=== PATIENT | female | born 1985 | race Caucasian/White ===

== ENCOUNTER → 2016-10-03 | Outpatient (CLI) | payer BC, OTHER ==
[~2016-10-03] MED LIST: ATARAX25 MG PO; CEPHALEXIN500 M1; CIPRO 500MG TA500 MG PO; CLEOCIN HC150 MG/CAP PO; CULTURELLE10 Billion PO; DARVOCET-N-101 UDTAB PO; HYDRALAZINE HCL25 MG PO; LINZESS290CAP PO; LORATADINE10 MG PO; MOTRIN 600600 MG/TAB PO; PAXIL PO; PREDNISONE20 MG PO; PRENATAL1 TA1 PO; PRILOSEC 20MG20 MG PO; PROVENTIL0.09 MG/A1 IH; TYLENOL W/COD1 UDTAB PO; ZANAFLEX; [UNRECOGNIZED DRUG - OTHER] PO
== END ==
LOC: COL.RAD 08:43
DX: R10.9 Unspecified abdominal pain (principal)
CPT/HCPCS: A9541

== ENCOUNTER 2020-11-22 10:24 | Day surgery (SDC) | payer BC ==
[~2020-11-22] VITALS: Ht 165.1 cm; Wt 54.1 kg
[2020-11-22] MEDS ORDERED: LINZESS72 MCG PO (11:24)
[2020-11-22] MEDS ORDERED: ATIVAN 1MG T1 MG/TAB PO (11:25)
[2020-11-22] MEDS ORDERED: BENTYL 20MG20 MG/TAB PO (11:25)
[2020-11-22] MEDS ORDERED: CYMBALTA 30MG30 MG PO (11:26)
[2020-11-22 11:27] VITALS: BP 111/74; PULSE 79; TEMP 98.3
[2020-11-22] MEDS ORDERED: ZANAFLEX2 MG PO (11:27)
[2020-11-22 12:50] VITALS: BP 103/62; PULSE 97
--- NOTE | 2020-11-22 12:50 | NUR ---
Patient returns to room 4 per cart from surgery accompanied by Amara HALE and Vicenta Simons CRNA. Patient arouses to verbal stimuli. IV fluids infusing and site is free of redness. Temp 98.1 and room air sats 98%. Minimal bloody discharge noted on filomena pad with briefs in place. Siderails up x2 and call light in reach. Spouse brought to room. Allowed to rest.
[2020-11-22] MEDS ORDERED: PERCOCET 325 MG1 TA2 PO (12:53)
[2020-11-22] MEDS ORDERED: IBU800 M1 PO (12:53)
[2020-11-22] MEDS ORDERED: METHERGINE0.2 MG/TAB PO (12:53)
[2020-11-22] MEDS ORDERED: MONODOX100 PO (12:54)
[2020-11-22 13:05] VITALS: BP 116/75; PULSE 74
--- NOTE | 2020-11-22 13:05 | NUR ---
More awake and taking ice chips. Tearful and spouse is supportative. Offered to call spiritaul care and denies need for this. Denies pain or nausea. Continues to take few ice chips. Minimal vaginal discharge noted on filomena pad.
[2020-11-22 13:20] VITALS: BP 130/71; PULSE 63
[2020-11-22 13:35] VITALS: BP 131/73; PULSE 61
--- NOTE | 2020-11-22 13:35 | NUR ---
Resting and continues to deny pain or nausea. IV fluids infusing. Spouse remains in the room and is very attentative and supportative.
--- NOTE | 2020-11-22 13:35 | NUR ---
Drinking water and talking with spouse. IV fluids continue to infuse.
[2020-11-22 13:50] VITALS: BP 112/52; PULSE 54
--- NOTE | 2020-11-22 13:50 | NUR ---
Eating muffin and drinking water. Continues to deny pain or nausea. Minimal bloody vaginal discharge. IV fluids infusing.
--- NOTE | 2020-11-22 14:11 | NUR ---
Assisted up to the bathroom and with one person assist. IV all infused and converted to INT. Shahida pad changed and minimal bloody vaginal discharge. Less tearful. Assisted back to room. INT needle discontinued and site is free of redness.
--- NOTE | 2020-11-22 14:20 | NUR ---
Patient dresses self with assist of spouse.
--- NOTE | 2020-11-22 14:35 | NUR ---
Dismissal instructions given and signed. Patient and spouse both verbalize understanding of these.
--- NOTE | 2020-11-22 14:38 | NUR ---
Patient dismissed to home driven by spouse and taken to the front door per wheelchair and assisted into vehicle with instructions in hand.
== END 2020-11-22 15:38 | disposition home or self-care (01) ==
LOC: SDCO 10:24
DX: O02.1 Missed abortion (principal); J45.909 Unspecified asthma, uncomplicated; M79.7 Fibromyalgia; F41.9 Anxiety disorder, unspecified; G43.909 Migraine, unspecified, not intractable, without status migrainosus; K58.9 Irritable bowel syndrome, unspecified; K59.00 Constipation, unspecified; Z79.899 Other long term (current) drug therapy
CPT/HCPCS: J1100; J1885; J2210; J2405; J2704; J3010; J7120

== ENCOUNTER 2021-10-03 21:00 | Outpatient (CLI) | payer BC ==
[~2021-10-03] VITALS: Ht 162.6 cm; Wt 62.3 kg
[~2021-10-03 21:00] MED LIST changes: +ATIVAN 1MG T1 MG/TAB PO; +BENTYL 20MG20 MG/TAB PO; +CYMBALTA 30MG30 MG PO; +IBU800 M1 PO; +LINZESS72 MCG PO; +METHERGINE0.2 MG/TAB PO; +MONODOX100 PO; +PERCOCET 325 MG1 TA2 PO; +ZANAFLEX2 MG PO
--- NOTE | 2021-10-03 21:05 | NUR ---
G5L2 at 24 weeks and 6 days arrives to unit with complaint of contractions every 5 minutes. Pt appears to be very uncomfortable and anxious. Pt states pain is in her lower abdomen and describes it as tightening. Pt reports feeling good movement, denies vaginal bleeding, or LOF. Pt is to be seen with MFM at [facility] for suspected chromosomal abnormalities. Pt oriented to room, call light within reach, bed in low and locked position. Clean gown on. US and toco explained and applied. Vital signs obtained. Admission assessment started. SVE performed at this time due to patient appearing very uncomfortable and states the baby feels low. Closed/thick/high.
[2021-10-03 21:30] VITALS: BP 134/82; PULSE 68; TEMP 97.7
--- NOTE | 2021-10-03 21:55 | NUR ---
18g IV started in left forearm with 1 attempt. Lactated Ringers infusing to gravity. Pt still appears to be uncomfortable at times.
[2021-10-03 22:27] LABS: COLLECTION METHOD CLEAN CATCH
[2021-10-03 22:30] VITALS: BP 118/66; PULSE 64
[2021-10-03 22:46] LABS: AMORPHOUS CRYSTAL Present (NOT PRESENT); MUCOUS Present (NOT PRESENT); PH 8 (5-8); SQUAMOUS EPITHELIAL 0-2 /hpf (0-10); URINE APPEARANCE Cloudy (CLEAR/HAZY); URINE BACTERIA Rare /hpf (NONE SEEN); URINE BILIRUBIN Negative (NEGATIVE); URINE BLOOD Negative (NEGATIVE); URINE COLOR Yellow (YELLOW); URINE GLUCOSE Negative (NEGATIVE); URINE KETONE Negative (NEGATIVE); URINE LEUKOCYTE ESTERASE Negative (NEGATIVE); URINE NITRATE Negative (NEGATIVE); URINE PROTEIN(semi-quant) Negative (NEGATIVE); URINE RBC 0-2 /hpf (0-2); URINE UROBILINOGEN Negative (NEGATIVE)
--- NOTE | 2021-10-03 23:00 | NUR ---
Pt reports feeling better. Rarely feeling the cramping or contractions. Feels comfortable going home at this time.
--- NOTE | 2021-10-03 23:30 | NUR ---
IV out. Discharge instructions reviewed with patient and spouse, verbalized understanding. Pt seen ambulating off unit with spouse.
== END 2021-10-03 23:30 | disposition home or self-care (01) ==
LOC: LDRO 21:00
PROVIDERS: Student in an Organized Health Care Education/Training Program
DX: O47.02 False labor before 37 completed weeks of gestation, second trimester (principal); Z3A.24 24 weeks gestation of pregnancy
CPT/HCPCS: J7120

== ENCOUNTER 2023-09-20 21:22 | Outpatient (CLI) | payer BC ==
[~2023-09-20] VITALS: Ht 165.1 cm; Wt 74.1 kg
[~2023-09-20 21:22] MED LIST changes: +ANUSOL-HC SUPPO25 MG RC; +CLEOCIN HCL300 MG PO; +COLACE 100100 MG/CAP PO; +LEVSIN 0.10.125 MG/T PO; +VITAMINS CHILDR1 CT1 PO
--- NOTE | 2023-09-20 21:25 | NUR ---
PT PRESENTS TO L&D WITH C/O HAVING CTX'S FOR 2 HOURS. DENIES VAG BLEEDING OR LEAKING FLUID. PT IS GRAVID 6 P3 L2, LAST DELIVERY WAS C/S FOR DISTRESS. THAT BABY HAD TRISOMY 18 AND LIVED ONLY 33 DAYS. SHE HAD 2 PREVIOUS VAG DELIVERIES, SAB X 2.
[2023-09-20 21:45] VITALS: BP 125/74; PULSE 88; TEMP 98.1
[2023-09-20] MEDS ORDERED: LR 1,000 ML IV PRN (21:45)
--- NOTE | 2023-09-20 21:45 | NUR ---
2144 DR CHAVEZ HERE AND IN TO EVALUATE PT. SVE 1/TK/BALLOTABLE. ORDERS NOTED FOR START IV BOLUS 1 LITER, PERCOCET 2 PO.
[2023-09-20 22:00] VITALS: BP 116/69; PULSE 83
[2023-09-20] MEDS ORDERED: oxyCODONE/Acetaminophen 5-325 MG TAB PO ONE (22:00)
--- NOTE | 2023-09-20 22:30 | NUR ---
IV BOLUS COMPLETE. DR CHAVEZ NOTIFIED PT IS VERRY MUCH BETTER. CTX'S STOPPED AND PT READY TO GO HOME. ORDERS TO DC TO HOME NOTED. IV DC'D. BANDAID TO SITE.
[2023-09-20 22:45] VITALS: BP 103/63; PULSE 87
--- NOTE | 2023-09-20 22:45 | NUR ---
PT GIVEN WRITTEN AND VERBAL DISCHARGE INSTRUCTIONS TO RETURN IF SHE HAS REGULAR CTX'S, VAG BLEEDING OR LEAKING FLUID. PT AMB OUT WITH HER SPOUSE. PT NOT IN LABOR.
== END 2023-09-20 22:45 ==
LOC: LDRO 21:22 → LDR 21:30 → LDRO 22:45
DX: O47.03 False labor before 37 completed weeks of gestation, third trimester (principal); Z3A.33 33 weeks gestation of pregnancy
CPT/HCPCS: OP; J7120

== ENCOUNTER 2023-09-28 12:24 | Outpatient (CLI) | payer BC ==
[~2023-09-28] VITALS: Ht 165.1 cm; Wt 75.5 kg
--- NOTE | 2023-09-28 12:35 | NUR ---
PT OREINTED TO ROOM AND CHANGED INTO GOWN. PT CAME IN TODAY WITH COMPLAINTS OF PAINFUL CX, AND HEAVINESS AND PRESSURE IN HER BOTTOM. PLACED ON MONITORS, T CATAGORY 1. CX EVERY 2-3 MINUTES. PT DENIES LEAKING OF FLUID OR VAGINAL BLEEDING.
--- NOTE | 2023-09-28 12:45 | NUR ---
1245-CALLED DR YEPEZ TO UPDATE ON PT STATUS. SVE /-3. DR YEPEZ ORDERED A LITER OF LR'S AND TO RECHECK IN AN HOUR. 5590- CALLED DR YEPEZ WITH UPDATE THAT PT IS UNCHANGED BUT REALLY FEELING THE CX. CX DID SPACE OUT DURING FLUID BOLUS, BUT HAVE MOVED CLOSER TOGETHER AGAIN. DR YEPEZ SAID THAT IT WAS UP TO THE PT IF SHE WANTED TO GO HOME OR STAY ANOTHER HOUR AND BE REASSESSED.
[2023-09-28 13:00] VITALS: BP 152/83; PULSE 75
[2023-09-28] MEDS ORDERED: LR 1,000 ML IV PRN (13:00)
[2023-09-28 13:30] VITALS: PULSE 75
[2023-09-28 14:00] VITALS: PULSE 70
[2023-09-28 16:00] VITALS: BP 134/71; PULSE 68
--- NOTE | 2023-09-28 16:45 | NUR ---
Pt education given on early labor. Pt instructed to return to the hospital if leaking fluid, vaginal bleeding, decrease in baby's movements, or regular strong contractions she cannot walk/talk through. Pt verbalized understanding. Pt and spouse leave ambulatory at 1700.
--- NOTE | 2023-09-28 16:55 | NUR ---
Repeat SVE at 1600 1//high. Dr. Reyes on unit and notified. Pt continues to contract every 3-5 minutes, moderate to firm on palpation, FHR cat 1. Dr. Reyes reviews FHR strip. Per physician, pt may go home since no change in cervix during stay. Pt informed of physician decision, verbalized understanding.
== END 2023-09-28 17:00 | disposition home or self-care (01) ==
LOC: LDRO 12:24
DX: O26.893 Other specified pregnancy related conditions, third trimester (principal); E75.5 Other lipid storage disorders; Z3A.34 34 weeks gestation of pregnancy
CPT/HCPCS: J7120